=== PATIENT | female | born 1950 | race Caucasian/White ===

== ENCOUNTER 2020-01-12 19:30 | Inpatient (IN) | payer OTHER, MEDICARE ==
[~2020-01-12] VITALS: Ht 162.6 cm; Wt 63.5 kg
--- NOTE | 2020-01-12 20:52 | NUR ---
pt to gps via denise
[2020-01-12] MEDS ORDERED: TEMAZEPAM 7.5 MG CAPSULE PO PRN (22:00)
[2020-01-12] MEDS ORDERED: LORAZEPAM 0.5 MG TABLET PO PRN (22:00)
[2020-01-12] MEDS ORDERED: BLOOD SUGAR DIAGNOSTIC 1 EACH STRIP IN ONE (22:00)
[2020-01-12] MEDS ORDERED: MAG HYDROX/AL HYDROX/SIMETH 30 ML UDC PO PRN (22:00)
[2020-01-12] MEDS ORDERED: MAGNESIUM HYDROXIDE 30 ML UDC PO PRN (22:00)
[2020-01-12] MEDS ORDERED: ACETAMINOPHEN 325 MG TABLET PO PRN (22:00)
[2020-01-12] MEDS ORDERED: ASCO-373 PO (22:57)
[2020-01-12] MEDS ORDERED: LAMO100T17 PO (22:57)
[2020-01-12] MEDS ORDERED: LOSA25TA27 PO (22:57)
[2020-01-12] MEDS ORDERED: LEVO50TA8 PO (22:57)
[2020-01-12] MEDS ORDERED: CALC-343 PO (22:57)
[2020-01-12] MEDS ORDERED: QUET200T PO (23:00)
[2020-01-12] MEDS ORDERED: SERT100T PO (23:00)
[2020-01-12 23:09] VITALS: BP 134/83
[2020-01-12] MEDS ORDERED: ATOR20TA PO (23:22)
[2020-01-12] MEDS ORDERED: MULT-754 PO (23:22)
--- NOTE | 2020-01-12 23:56 | NUR ---
PT ARRIVED ON THE UNIT @ 2049, RECEIVED PT FROM [facility], PT IS A 69 Y/O FEMALE, COMING FROM [facility]IOR TO [facility], PT IS PLACED ON A 5150 DUE TO GS, PER HOLD PT IS HERE DUE TO INABILITY OF TAKING MEDICATION, INABILITY TO CARE OF HERSELF, INCREASED DEPRESSION, INCREASED DELUSIONS AND PSYCHIATRIC SYMPTOMS. PER REPORT PT HAS MEDICAL HX OF SEIZURES, HYPOTHYROIDISM, HTN, BREAST CANCER W/ A R. MASECTOMY, BILATERAL KNEE SURGERY. PSYCH HX OF SCHIZO, DEPRESSION. UPON ASSESSING PT, PT IS A/O X2-3, VERY DELUSIONAL, PT HAS TACTICLE DELUSIONS, AUDITORY AND VISUAL DELUSIONS/HALLUCINATIONS, HYPOCHONDRIAC FEATURES BELIEVES SHE IS SICK FROM EVERYTHING, CALM, COMPLIANT, DEPRESSED, ISOLATIVE, PARANOID IDEATION, DISORIENTED, LOOSE ASSOCIATIONS, DISHEVELED, UNKEPT APPEARANCE. PT WAS C/O OF HAVING LICE, I DID A FULL SKIN ASSESSMENT, PT SKIN IS INTACT, NO LICE WAS FOUND, PT JUST HAD DRY SKIN AND ENCOURAGED PT TO TAKE A SHOWER. ORDERED A WOUND CONSULT DUE TO PT WANTING CREAM FOR ITCH RELIEF, PT WAS FOCUSED ON BEING SICK DUE TO HER LEG HAIR FALLING OUT, WAS ABLE TO REDIRECT PT, PT IS REDIRECTABLE, INTERACTS WHEN ENGAGED. PT STATES SHE HEARS CONSTANT STATICS AND SEE'S THINGS THAT ARE NORMALLY THERE, SHE STATES HER DEPRESSION IS "SELF INDUCED" THAT SHE IS AWARE OF IT AND ON MEDS BUT IS FORGETFUL AND DOESNT KNOW HOW TO TAKE THEM. SPOKE TO THE SHANAE @ 2229, HE STATED THAT SHE HAS BEEN NONCOMPLAINT WITH HER MEDICATION FOR WEEKS NOW AND HAS NOTICED HE DELUSIONS WORSENING, HE STATED THAT HER PREVIOUS HOSPITILIZATION SHE WAS PLACED ON [place] AND THAT ONCE SHE STOPPED TAKING THE MEDICATION IT CAUSED HER TO HAVE A SEIZURE. HE STATED THAT SHE TRIED TO OD ON HER PSYCH MEDS BUT HE BELIEVES THAT SHE WAS JUST CONFUSED ON WHAT TO TAKE WHICH CAUSED HER TO HAVE THIS ATTEMPT. THE PT HAD A GRAN MAL SEIZURE 01/07, WITH MINOR CONVULSIONS AND FOAMING AT THE MOUTH WHICH SHE WAS THEN TAKEN TO THE HOSPITAL. WHEN ASKING THE PT REGARDING THIS SHE STATED "I FAKED IT, I DIDNT TELL MY FAMILY ABOUT THE TRUTH OF MY CHILDHOOD" WHEN ASKING FOR MORE DETAIL THE PT STAYED QUIET, PT INTERACTS BUT IS SELECTIVE AND CONFUSED MOST OF THE TIME. PT WAS MADE AWARE OF THE UNITY, COPY OF ADVISMENT, MEDICATION HANDBOOK, AND PT RIGHTS BOOKLET WAS GIVEN TO THE PT, PT MADE AWARE OF THE UNIT, VSS, PT WILL BE UNDER THE MEDICAL CARE OF DR. JOAQUIN, PSYCH MEDS OF DR. CHRIS, DR. JOAQUIN MADE AWARE OF THE PTS ARRIVAL ON THE UNIT AND MED RECON, DR. JOAQUIN CAME TO THE [place] @ 2325. ALL NEEDS MET AT THIS TIME, WILL CONTINUE TO MONITOR Q15MIN FOR SAFETY AND BEHAVIOR.
--- NOTE | 2020-01-13 06:30 | NUR ---
GPS RN NOTE LEFT DR. CHRIS A MESSAGE REGARDING PTS ADMISSION @ 0630, WILL PASS IT ON TO UPCOMING SHIFT
[2020-01-13 07:49] LABS: CHOLESTEROL 137 mg/dL (<200); HDL CHOLESTEROL 43 mg/dL (40-60); LDL 81 mg/dL (0-99); TRIGLYCERIDES 91 mg/dL (30-150)
[2020-01-13 07:52] LABS: ALBUMIN 3.6 g/dL (3.4-5.0); BILIRUBIN,TOTAL 0.4 mg/dL (0.2-1.0); CREATININE 0.9 mg/dL (0.6-1.3); POTASSIUM 3.8 mmol/L (3.5-5.1); TOTAL PROTEIN, SERUM 7.6 g/dL (6.4-8.2)
[2020-01-13 08:00] VITALS: BP 134/84
[2020-01-13] MEDS: LEVOTHYROXINE SODIUM 50 MCG TABLET PO SCH (08:20)
[2020-01-13] MEDS: LOSARTAN POTASSIUM 25 MG TABLET PO SCH (08:21)
[2020-01-13] MEDS: MULTIVIT W/MINERALS 1 TAB TABLET PO SCH (08:21)
[2020-01-13] MEDS: ASCORBIC ACID 500 MG TABLET PO SCH (08:21)
[2020-01-13] MEDS: LamoTRIgine 100 MG TABLET PO SCH ×2 (08:21→16:00)
[2020-01-13] MEDS: ATORVASTATIN 10 MG TABLET PO SCH (08:21)
--- NOTE | 2020-01-13 09:30 | NUR ---
FAMILY CONTACT: SW contacted pts Sacha ([phone]) for collateral information, treatment and discharge planning. 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 He states that he believes pt was diagnosed with Bipolar Disorder but is unsure. He mentioned that pt was taking Seroquel and Gu-Win and then her psychiatrist discontinued the Gu-Win and added Zoloft and Klonopin. states that recently pt stopped taking Klonopin without his knowledge and states that is when pt became more delusional and psychotic. states that in August pt was admitted at [facility] for 10 days under the care of Dr. Tinajero and states that pt was doing well until her outside psychiatrist changed her medications again. states that pt has been acting bizarre, delusional, paranoid, and refusing to take her medications, and taking care of her basic daily needs and states that she sometimes shuts down and does not speak. states that her triggers are her daughters baby and her daughter's in laws, as states pt feels intimidated by them and feels she is unworthy of caring for her grandchild. states that he wishes for pt to return home, however states that pt needs to be stable because currently he is unable to care for her due to her current mental illness. also stated that he believes pt may have taken an overdose but states he is not sure. states that the reason for pts hospitalization was due to her having a seizure and having delusional thoughts. sates that pt has always had passive suicidal ideation but states she has never attempted suicide.
--- NOTE | 2020-01-13 11:22 | NUR ---
INITIAL DISCHARGE PLAN: Per Sacha ([phone]) he wishes for pt to be discharged back home [address] [address]. WILLY will help form a safe and proper discharge in collaboration with . Addendum: 01/13/20 at 1127 by SILVESTRE AGUILERA SW PSYCHIATRIST: Dr Carmen Mckeon Address: [address] [place] [address] RECYCLER: Dr. Sacha Alfaro Address: [address], [place] [address]
--- NOTE | 2020-01-13 11:31 | NUR ---
WOUND CARE CONSULT: PT REFUSED SKIN ASSESSMENT. CURRENT ESAU SCORE IS 19. WILL SEE PRN.
--- NOTE | 2020-01-13 11:33 | NUR ---
UR NOTE: AUTHORIZATION#[id number] OBTAINED FROM JOSE Graves WITH [employer] @ [phone]. CALL WILL HAVE TO BE MADE WITHIN 48 HOURS TO DEPT. CALL DIRECT LINE [phone] OR YOU CAN FAX CLINICAL TO FAX# [phone].
--- NOTE | 2020-01-13 15:34 | NUR ---
RN-CO: PAGED DR DOT MD STATED DR BUTLER WILL SEE HIS PATIENTS TODAY.
[2020-01-13 16:00] VITALS: BP 129/87
[2020-01-13] MEDS: SERTRALINE HCL 50 MG TABLET PO SCH (17:50)
[2020-01-13 20:33] VITALS: BP 149/94
[2020-01-13 21:30] VITALS: BP 135/82
[2020-01-13] MEDS: QUETIAPINE FUMARATE 100 MG TABLET PO SCH (21:55)
[2020-01-14 08:00] VITALS: BP 138/81
[2020-01-14] MEDS: LOSARTAN POTASSIUM 25 MG TABLET PO SCH (08:50)
[2020-01-14] MEDS: ASCORBIC ACID 500 MG TABLET PO SCH (08:50)
[2020-01-14] MEDS: ATORVASTATIN 10 MG TABLET PO SCH (08:50)
[2020-01-14] MEDS: MULTIVIT W/MINERALS 1 TAB TABLET PO SCH (08:50)
[2020-01-14] MEDS: LEVOTHYROXINE SODIUM 50 MCG TABLET PO SCH (08:50)
[2020-01-14] MEDS: LamoTRIgine 100 MG TABLET PO SCH ×2 (08:50→17:03)
[2020-01-14] MEDS: SERTRALINE HCL 50 MG TABLET PO SCH (08:51)
[2020-01-14 16:00] VITALS: BP 100/63
--- NOTE | 2020-01-14 16:16 | NUR ---
Patient noticed positive MRSA, MD made aware and received order Bactroban apply nares BID x 5 days, noted and carry out.
[2020-01-14 20:15] VITALS: BP 137/76
[2020-01-14] MEDS: QUETIAPINE FUMARATE 100 MG TABLET PO SCH (21:12)
[2020-01-14] MEDS: MUPIROCIN OINT 2% 22 GM TUBE NS SCH (21:12)
[2020-01-15] MEDS: LEVOTHYROXINE SODIUM 50 MCG TABLET PO SCH (07:09)
[2020-01-15 08:00] VITALS: BP 128/87
[2020-01-15] MEDS: ATORVASTATIN 10 MG TABLET PO SCH (08:30)
[2020-01-15] MEDS: MULTIVIT W/MINERALS 1 TAB TABLET PO SCH (08:31)
[2020-01-15] MEDS: LOSARTAN POTASSIUM 25 MG TABLET PO SCH (08:31)
[2020-01-15] MEDS: SERTRALINE HCL 50 MG TABLET PO SCH (08:31)
[2020-01-15] MEDS: ASCORBIC ACID 500 MG TABLET PO SCH (08:31)
[2020-01-15] MEDS: LamoTRIgine 100 MG TABLET PO SCH ×2 (08:31→16:21)
[2020-01-15] MEDS: MUPIROCIN OINT 2% 22 GM TUBE NS SCH ×2 (08:38→21:26)
--- NOTE | 2020-01-15 09:00 | NUR ---
RN NOTE- PT IS ALERT ORIENTED TO PERSON PLACE TIME PURPOSE, POOR EYE CONTACT AND A BIT IRRITABLE. MED COMPLIANT THOUGH QUESTIONING NUMBER OF PILLS AND SEEMS IRRITATED TO BE ON UNIT. DENYING SI HI VH
--- NOTE | 2020-01-15 10:07 | NUR ---
RN NOTE- PT CONFUSED INTERNALLY PREOCCUPIED SEEMS TO BE RESPONDING AND QUITE PARANOID. MED COMPLIANT . MONITORING FOR SAFETY REALITY ORIENTATION
--- NOTE | 2020-01-15 10:30 | NUR ---
UR Note: WILLY faxed a clinical to [facility] to the fax number: [phone].
[2020-01-15 20:23] VITALS: BP 156/54
[2020-01-15] MEDS: QUETIAPINE FUMARATE 100 MG TABLET PO SCH (21:26)
[2020-01-16] MEDS: LEVOTHYROXINE SODIUM 50 MCG TABLET PO SCH (06:42)
[2020-01-16 08:00] VITALS: BP 132/80
[2020-01-16] MEDS: ATORVASTATIN 10 MG TABLET PO SCH (08:12)
[2020-01-16] MEDS: ASCORBIC ACID 500 MG TABLET PO SCH (08:12)
[2020-01-16] MEDS: SERTRALINE HCL 50 MG TABLET PO SCH (08:12)
[2020-01-16] MEDS: MULTIVIT W/MINERALS 1 TAB TABLET PO SCH (08:12)
[2020-01-16] MEDS: LamoTRIgine 100 MG TABLET PO SCH ×2 (08:12→17:04)
[2020-01-16] MEDS: LOSARTAN POTASSIUM 25 MG TABLET PO SCH (08:13)
[2020-01-16] MEDS: MUPIROCIN OINT 2% 22 GM TUBE NS SCH ×2 (08:13→21:34)
[2020-01-16 16:11] VITALS: BP 119/69
[2020-01-16 20:11] VITALS: BP 117/64
[2020-01-16] MEDS: QUETIAPINE FUMARATE 100 MG TABLET PO SCH (21:33)
[2020-01-17] MEDS: LEVOTHYROXINE SODIUM 50 MCG TABLET PO SCH (06:30)
[2020-01-17 08:00] VITALS: BP 126/80
[2020-01-17] MEDS: MUPIROCIN OINT 2% 22 GM TUBE NS SCH ×2 (09:31→21:22)
[2020-01-17] MEDS: ASCORBIC ACID 500 MG TABLET PO SCH (09:34)
[2020-01-17] MEDS: LamoTRIgine 100 MG TABLET PO SCH ×2 (09:34→16:21)
[2020-01-17] MEDS: MULTIVIT W/MINERALS 1 TAB TABLET PO SCH (09:34)
[2020-01-17] MEDS: SERTRALINE HCL 50 MG TABLET PO SCH (09:34)
[2020-01-17] MEDS: ATORVASTATIN 10 MG TABLET PO SCH (09:34)
[2020-01-17] MEDS: LOSARTAN POTASSIUM 25 MG TABLET PO SCH (09:35)
[2020-01-17 16:00] VITALS: BP 117/69
[2020-01-17 20:15] VITALS: BP 123/65
[2020-01-17] MEDS: QUETIAPINE FUMARATE 100 MG TABLET PO SCH (21:22)
[2020-01-17 22:33] VITALS: BP 123/65
[2020-01-18 08:00] VITALS: BP 125/78
[2020-01-18] MEDS: ASCORBIC ACID 500 MG TABLET PO SCH (08:26)
[2020-01-18] MEDS: LEVOTHYROXINE SODIUM 50 MCG TABLET PO SCH (08:26)
[2020-01-18] MEDS: LOSARTAN POTASSIUM 25 MG TABLET PO SCH (08:27)
[2020-01-18] MEDS: MULTIVIT W/MINERALS 1 TAB TABLET PO SCH (08:27)
[2020-01-18] MEDS: LamoTRIgine 100 MG TABLET PO SCH ×2 (08:27→16:51)
[2020-01-18] MEDS: SERTRALINE HCL 50 MG TABLET PO SCH (08:28)
[2020-01-18] MEDS: MUPIROCIN OINT 2% 22 GM TUBE NS SCH ×2 (08:28→21:21)
[2020-01-18] MEDS: ATORVASTATIN 10 MG TABLET PO SCH (08:37)
--- NOTE | 2020-01-18 09:47 | NUR ---
UR Note: WILLY called [employer] Representative, Chinyere Spears ([phone]), and received a message on her voicemail stating that she was out of the office and that she is being covered by a nurse. WILLY called the extension [phone] for the covering nurse and informed her that the SW would like to follow up on the pts authorization.
--- NOTE | 2020-01-18 10:00 | NUR ---
UR Note: WILLY faxed a clinical to [facility] with attn to porter sample case Chinyere Spears to the fax number: [phone].
--- NOTE | 2020-01-18 14:08 | NUR ---
UR Note: SW spoke to Toma ([phone]), [employer] Support Assistant, and informed her that the SW faxed a clinical packet today and that the hospital is requesting additional authorization. biofuels technology manager stated that she will review it and will let the SW know about the authorization.
[2020-01-18 16:00] VITALS: BP 120/77
[2020-01-18 20:30] VITALS: BP 115/66
[2020-01-18] MEDS: QUETIAPINE FUMARATE 100 MG TABLET PO SCH (21:20)
[2020-01-19] MEDS: LEVOTHYROXINE SODIUM 50 MCG TABLET PO SCH (06:38)
[2020-01-19 08:00] VITALS: BP 136/72
[2020-01-19] MEDS: SERTRALINE HCL 50 MG TABLET PO SCH (08:47)
[2020-01-19] MEDS: ASCORBIC ACID 500 MG TABLET PO SCH (08:48)
[2020-01-19] MEDS: MULTIVIT W/MINERALS 1 TAB TABLET PO SCH (08:48)
[2020-01-19] MEDS: LamoTRIgine 100 MG TABLET PO SCH ×2 (08:48→17:07)
[2020-01-19] MEDS: LOSARTAN POTASSIUM 25 MG TABLET PO SCH (08:48)
[2020-01-19] MEDS: ATORVASTATIN 10 MG TABLET PO SCH (08:48)
[2020-01-19] MEDS: MUPIROCIN OINT 2% 22 GM TUBE NS SCH ×2 (09:00→21:32)
--- NOTE | 2020-01-19 09:00 | NUR ---
RN NOTE- PT IN ROOM ISOLATIVE WITHDRAWN PARANID AND GUARDED. MED COMPLIANT SELECTIVELY INTERACTIVE PREOCCUPIED INTERNALLY SEEMS BETTER SINCE LAST WEEK
--- NOTE | 2020-01-19 09:25 | NUR ---
Family Contact: SW contacted pts Sacha ([phone]) and informed him that the pt will be discharged home tomorrow. Pts stated that he would like a call from the psychiatrist and so the SW sent a message. Pts stated that he will arrive around 1pm to pick her up.
--- NOTE | 2020-01-19 09:27 | NUR ---
UR Note: WILLY spoke to Toma ([phone]), [employer] Program Chair, and left a voicemail message stating that the SW faxed a clinical yesterday and did not receive any information on the pts authorization. WILLY also stated that the pt will be discharged tomorrow so authorization is needed up to 01/19/20.
[2020-01-19 16:00] VITALS: BP 129/71
[2020-01-19 20:48] VITALS: BP 120/71
[2020-01-19] MEDS: QUETIAPINE FUMARATE 100 MG TABLET PO SCH (21:32)
[2020-01-20] MEDS: LEVOTHYROXINE SODIUM 50 MCG TABLET PO SCH (07:23)
[2020-01-20 08:00] VITALS: BP 135/81
[2020-01-20] MEDS: MUPIROCIN OINT 2% 22 GM TUBE NS SCH (08:36)
[2020-01-20 08:37] VITALS: BP 135/81
[2020-01-20] MEDS: ATORVASTATIN 10 MG TABLET PO SCH (08:37)
[2020-01-20] MEDS: LamoTRIgine 100 MG TABLET PO SCH (08:37)
[2020-01-20] MEDS: MULTIVIT W/MINERALS 1 TAB TABLET PO SCH (08:37)
[2020-01-20] MEDS: SERTRALINE HCL 50 MG TABLET PO SCH (08:37)
[2020-01-20] MEDS: ASCORBIC ACID 500 MG TABLET PO SCH (08:37)
[2020-01-20] MEDS: LOSARTAN POTASSIUM 25 MG TABLET PO SCH (08:37)
--- NOTE | 2020-01-20 09:00 | NUR ---
RN NOTE- A BIT MORE INTERACTIVE AND ENGAGING PT IN ROOM ISOLATIVE WITHDRAWN PARANOID AND GUARDED. MED COMPLIANT SELECTIVELY INTERACTIVE PREOCCUPIED INTERNALLY SEEMS BETTER
--- NOTE | 2020-01-20 13:20 | NUR ---
RADIO/TV TECHNICIAN NOTE- PT DC HOME INTO CARE OF FAMILY AT THIS TIME. VS STABLE, PT ALERT ORIENTED TO PERSON PLACE TIME AND PURPOSE. PT DENIES SI HI AH VH. VALUABLES RETURNED AND SIGNED FOR. ID [id number] REMOVED. AFTERCARE AND DC INSTRUCTIONS REVIEWED W SPOUSE AND VERBALIZED UNDERSTANDING STATED. REFUSED PNA AND FLU VACCINES. ESCORTED OFF UNIT AND SIGNED INTO FAMILY CARE BY THIS RN.
--- NOTE | 2020-01-20 13:58 | NUR ---
Discharge Note: Pt will be discharged to her home located at [address] [facility] [address] [facility] [address]. Pt will be picked up by her , Sacha ([phone]), around 1pm. Upon discharge, pt appears to be in a euthymic mood and presents with a calm affect. Pt appears to be alert and oriented x3. Pt appears to be well groomed and appropriately dressed. Pt denies both suicidal and homicidal ideation as well as auditory and visual hallucinations. Pt will continue to be under the care of psychiatrist, Dr Carmen Mckeon, [place] [address] [place] [address]; ; fax: [phone]. Pt has an appointment on 01/27/20 at 2:40pm. Pt will also be under the care of pulley mortiser operator, Dr. Sacha Alfaro, located at [address], [place] [address]; . The multidisciplinary exit care form was done, printed, signed, and given to the patient.
--- NOTE | 2020-01-20 14:18 | NUR ---
MD Contact: WILLY faxed notes to Dr. Mckeon to the fax number: [phone].
== END 2020-01-20 13:20 | disposition home or self-care (01) | DRG 885 ==
LOC: ER 19:35 → GPS 20:44
PROVIDERS: ADMIT Psychiatry & Neurology Psychiatry; ATTEND Nurse Practitioner Acute Care
DX: F33.3 Major depressive disorder, recurrent, severe with psychotic symptoms (principal); F01.50 Vascular dementia, unspecified severity, without behavioral disturbance, psychotic disturbance, mood disturbance, and anxiety; R45.851 Suicidal ideations; F29 Unspecified psychosis not due to a substance or known physiological condition; F41.9 Anxiety disorder, unspecified; E03.9 Hypothyroidism, unspecified; E11.9 Type 2 diabetes mellitus without complications; G40.909 Epilepsy, unspecified, not intractable, without status epilepticus; I10 Essential (primary) hypertension; Z85.3 Personal history of malignant neoplasm of breast; Z91.040 Latex allergy status; Z79.899 Other long term (current) drug therapy; Z73.6 Limitation of activities due to disability; Z22.322 Carrier or suspected carrier of Methicillin resistant Staphylococcus aureus
CPT/HCPCS: 36415; 80053-TC; 80061-TC; 82565-TC; 82962-TC; 84443-TC; 87081-TC